=== PATIENT | male | born 1960 | race American Indian/Alaskan Native ===

== ENCOUNTER 2025-08-10 09:15 | Emergency (ER) | payer MEDICAID ==
[~2025-08-10] VITALS: Ht 162.6 cm; Wt 90.9 kg
[2025-08-10 09:19] VITALS: TEMP 98.3
[2025-08-10] MEDS ORDERED: EMPA10TA3 PO (09:24)
[2025-08-10] MEDS ORDERED: TELM1TAB84 PO (09:24)
[2025-08-10] MEDS ORDERED: METO50 PO (09:24)
[2025-08-10 09:36] LABS: GLUCOMETER DEV NAME(LOC) ERT.7; GLUCOSE,POINT OF CARE 253 MG/DL (70-110)
[2025-08-10 10:25] VITALS: BP 150/85; PULSE 78; RESP 16; O2SAT 99
[2025-08-10] MEDS ORDERED: METO-327 PO (10:27)
[2025-08-10] MEDS ORDERED: EMPA1TAB7 PO (10:27)
[2025-08-10] MEDS ORDERED: TELM1TAB PO (10:27)
== END 2025-08-10 10:38 | disposition home or self-care (01) ==
LOC: EMS 09:17
DX: E11.65 Type 2 diabetes mellitus with hyperglycemia (principal); I10 Essential (primary) hypertension; Z76.0 Encounter for issue of repeat prescription; Z79.899 Other long term (current) drug therapy
CPT/HCPCS: 82962; 99282; 99283